=== PATIENT | male | born 1980 | race Hispanic/Latino ===

== ENCOUNTER 2017-10-18 12:05 | Outpatient (CLI) | payer OTHER ==
--- NOTE | 2017-10-19 08:53 | Magnetic Resonance Report ---
MR UPPER EXTREMITY NON-JOINT RIGHT WITHOUT CONTRAST HISTORY: Right hand and finger pain. Right thumb mass. TECHNIQUE: Multisequence, multiplanar MRI without IV gadolinium was performed through the right wrist and hand. COMPARISON: None. FINDINGS: A marker has been placed along the medial base of the right thumb. Underlying this marker, there is a well defined cystic structure measuring 1.4 x 1.6 x 0.8 cm. This lesion is homogeneously decreased T1 signal and homogeneous intermediate to increased T2 signal. This lesion has a well-defined border/capsule. There appears to be in intimate association with the tendon of the flexor pollicis longus muscle. This lesion is highly characteristic of a ganglion cyst. The remaining musculotendinous structures are within normal limits. The carpal tunnel contents are unremarkable. The bony structures demonstrate normal signal throughout. No evidence for fracture, bony destruction or erosive joint pathology. The remaining soft tissues are unremarkable. IMPRESSION: Probable ganglion cyst involving the tendon of the flexor pollicis longus muscle.
== END 2017-10-18 12:06 | disposition home or self-care (01) ==
LOC: MRI 12:05
PROVIDERS: ATTEND Internal Medicine
DX: M79.641 Pain in right hand (principal); M79.644 Pain in right finger(s); R22.31 Localized swelling, mass and lump, right upper limb